=== PATIENT | male | born 1975 | race Two or more races ===

== ENCOUNTER 2024-06-01 07:42 | Emergency (ER) | payer OTHER ==
[~2024-06-01] VITALS: Ht 172.7 cm; Wt 79.5 kg
[2024-06-01 07:46] VITALS: TEMP 97.9
[2024-06-01] MEDS ORDERED: ACET-2080 PO (09:00)
[2024-06-01] MEDS ORDERED: IBUP-1554 PO (09:00)
[2024-06-01] MEDS: ACETAMINOPHEN/CODEINE 300-30 MG TABLET PO ONE (09:04)
[2024-06-01] MEDS: IBUPROFEN 600 MG TABLET PO ONE (09:04)
[2024-06-01 09:23] VITALS: BP 152/90; PULSE 90; RESP 18; O2SAT 98
== END 2024-06-01 09:30 | disposition home or self-care (01) ==
LOC: EMS 07:42
DX: S82.832A Other fracture of upper and lower end of left fibula, initial encounter for closed fracture (principal); F17.210 Nicotine dependence, cigarettes, uncomplicated; W06.XXXA Fall from bed, initial encounter; Y93.89 Activity, other specified; Y92.89 Other specified places as the place of occurrence of the external cause; Y99.8 Other external cause status
CPT/HCPCS: 29540; 99283